=== PATIENT | male | born 1970 | race African-American/Black ===

== ENCOUNTER 2017-05-13 01:08 | Emergency (ER) | payer BC ==
[~2017-05-13] VITALS: Ht 200.7 cm; Wt 137.8 kg
[~2017-05-13 01:08] MED LIST: GLYBURIDE5 MG PO; METFORMIN HCL1000 MG PO; MULTIPLE VITAM1 EACH PO; PROCTOFOAM-HC10 GM PR
[2017-05-13 01:45] LABS: HEMATOCRIT 39.2 % (38.0-50.0); MCH 29.1 PG (29.0-34.0); MCHC 33.7 G/DL (30.0-36.0); MCV 86.3 FL (86-99); MEAN PLAT.VOLUME 10.9 uM^3 (9.0-12.4); PLATELET COUNT 250 K/uL (156-360); RBC DIS.WIDTH-CV 12.1 % (11.8-14.6); RBC DIS.WIDTH-SD 38.1 % (39-53); RED BLOOD COUNT 4.54 M/uL (4.00-5.50); WHITE BLOOD COUNT 7.4 K/uL (4.1-10.2)
[2017-05-13 01:49] LABS: CHLORIDE 103 mEq/L (99-109); POTASSIUM 3.8 mEq/L (3.7-5.4); SODIUM 136 mEq/L (136-147)
[2017-05-13 01:50] LABS: PROTHROMBIN TIME 10.2 (9.2-11.2); PTT 24.4 (25-32)
[2017-05-13 01:51] LABS: GLUCOSE 243 mg/dL (70-99)
[2017-05-13 01:53] LABS: ANION GAP 10 MEQ/L (2-14); TOTAL BILIRUBIN 0.2 mg/dL (0.0-1.0)
[2017-05-13 01:55] LABS: ALKALINE PHOSPHATASE 119 IU/L (3-129); GFR ESTIMATE (CALCULATED) > 59 mL/min/
[2017-05-13 01:56] LABS: UREA NITROGEN (BUN) 14 mg/dL (9-23)
[2017-05-13 01:58] LABS: LIPASE 423 U/L (1.0-51.0)
[2017-05-13 02:05] LABS: TROP-I INTERPRETATION NEGATIVE; TROPONIN-I < 0.01 ng/mL (0.0-0.30)
[2017-05-13 02:55] LABS: SERUM ETHYL ALCOHOL < 10 mg/dL
[2017-05-13 04:00] VITALS: BP 148/98
== END 2017-05-13 04:23 | disposition home or self-care (01) ==
LOC: EME 01:08
PROVIDERS: Emergency Medicine
DX: K85.90 Acute pancreatitis without necrosis or infection, unspecified (principal); E11.9 Type 2 diabetes mellitus without complications; R03.0 Elevated blood-pressure reading, without diagnosis of hypertension; E66.01 Morbid (severe) obesity due to excess calories; Z68.34 Body mass index [BMI] 34.0-34.9, adult; Z79.84 Long term (current) use of oral hypoglycemic drugs; Z79.899 Other long term (current) drug therapy; Z87.891 Personal history of nicotine dependence
CPT/HCPCS: 74176; 80048; 80053; 83690; 84484; 85027; 85610; 85730; 93005; 99281; 99284; G0480; J1885; J7030

== ENCOUNTER 2018-02-01 15:11 | Emergency (ER) | payer BC ==
[~2018-02-01] VITALS: Ht 200.7 cm; Wt 140.7 kg
[2018-02-01 16:00] LABS: HEMATOCRIT 39.5 % (38.0-50.0); HEMOGLOBIN 13.7 G/DL (12.5-16.6); MCH 30.4 PG (29.0-34.0); MCHC 34.7 G/DL (30.0-36.0); MCV 87.6 FL (86-99); PLATELET COUNT 229 K/uL (156-360); RBC DIS.WIDTH-CV 12.6 % (11.8-14.6); RED BLOOD COUNT 4.51 M/uL (4.00-5.50); WHITE BLOOD COUNT 7.4 K/uL (4.1-10.2)
[2018-02-01 16:12] LABS: ALBUMIN 4.5 g/dL (3.2-4.8)
[2018-02-01 16:13] LABS: CHLORIDE 106 mEq/L (99-109); POTASSIUM 3.9 mEq/L (3.7-5.4); SODIUM 141 mEq/L (136-147)
[2018-02-01 16:15] LABS: GLUCOSE 149 mg/dL (70-99); TOTAL PROTEIN 7.7 g/dL (6.4-8.3)
[2018-02-01 16:17] LABS: TOTAL BILIRUBIN 0.4 mg/dL (0.0-1.0)
[2018-02-01 16:18] LABS: ALKALINE PHOSPHATASE 85 IU/L (3-129)
[2018-02-01 16:19] LABS: CREATININE 1.1 mg/dL (0.6-1.3); GFR ESTIMATE (CALCULATED) > 59 mL/min/ (58.99-99999)
[2018-02-01 16:20] LABS: AST (GOT) 23 IU/L (2-34); DIRECT BILIRUBIN 0.2 mg/dL (0.0-0.3); UREA NITROGEN (BUN) 9 mg/dL (9-23)
[2018-02-01 16:22] LABS: ALT (GPT) 35 IU/L (3-49); LIPASE 104 U/L (1.0-51.0)
[2018-02-01] MEDS ORDERED: ZOFRAN4 MG PO (17:16)
[2018-02-01 19:42] VITALS: BP 163/108
== END 2018-02-01 19:42 | disposition home or self-care (01) ==
LOC: EME 15:11
PROVIDERS: Emergency Medicine
DX: K52.9 Noninfective gastroenteritis and colitis, unspecified (principal); E11.9 Type 2 diabetes mellitus without complications; Z79.84 Long term (current) use of oral hypoglycemic drugs; Z87.891 Personal history of nicotine dependence
CPT/HCPCS: 80048; 80076; 82948; 83605; 83690; 85027; 99281; 99285; J2405; J7030